=== PATIENT | male | born 1985 | race Caucasian/White ===

== ENCOUNTER 2022-08-28 12:01 | Emergency (ER) | payer OTHER, SELFPAY ==
[2022-08-28 12:07] VITALS: BP 130/85; PULSE 85; RESP 18; TEMP 36.8; O2SAT 97
[2022-08-28 12:10] VITALS: PULSE 69; RESP 16; O2SAT 97
--- NOTE | 2022-08-28 12:42 | ED_ITS ---
HPI - URI/Sore Throat General: Chief Complaint: Upper Respiratory Infection Stated Complaint: Congestion, N/V, body aches Time Seen by Provider: 08/28/22 12:40 History of Present Illness: Mr. Cabral is a 37-year-old gentleman without significant past medical history presenting to the emergency department for respiratory symptoms. Onset of symptoms approximately 1 week ago initially with body aches and congestion however is now developed productive cough and continued symptoms including fever. Intensity symptoms is moderate to severe. Course has worsened. No other specific changes in health, exacerbating, or alleviating factors identified. He did see PCP and was prescribed a course of steroids, these have not provided significant improvement, no history of underlying lung disease or tobaccoism. Onset (ago): week(s) Consistency: progressively worsening Severity: moderate Description of mucous: green Able to tolerate fluids by mouth: Yes Exacerbating factors: exertion Relieving factors: nothing Context: sick contacts Associated symptoms: Reports chills, congestion, cough, ear or mastoid pain, myalgias and short of breath Review of Systems General: Reports: 10 or more systems reviewed and unremarkable except in HPI and below Const: Reports: chills ENMT: Reports: ear or mastoid pain PFS ED PFSH: Medical History (Updated 09/05/22 @ 00:01 by SHAE Hoover) No significant past medical history Surgical History (Updated 08/28/22 @ 13:21 by Tobi Huertas MD) No significant past surgical history Physical Exam Const: COMMON NORMALS: alert GENERAL APPEARANCE: cooperative and well developed HENMT: COMMON NORMALS: normocephalic, atraumatic and TM's normal bilaterally HEAD & SCALP: normocephalic and atraumatic TYMPANIC MEMBRANE: TM's normal bilaterally Eye: COMMON NORMALS: conjunctivae normal CONJUNCTIVA: Yes conjunctivae normal SCLERA: sclerae normal Neck/C-Spine: COMMON NORMALS: supple GENERAL: Yes trachea midline Resp: COMMON NORMALS: clear to auscultation bilaterally EFFORT & INSPECTION: Yes able to speak in complete sentences AUSCULTATION: clear to auscultation bilaterally Cardio: COMMON NORMALS: regular rate and regular rhythm RATE: regular rate RHYTHM: regular rhythm Extremity: GENERAL: Yes normal exam except as noted and No edema Neuro: COMMON NORMALS: moves all extremities SENSORIUM/ORIENTATION: Yes alert and No Orientation impaired Psych: COMMON NORMALS: mental status grossly normal and Normal thought process present THOUGHT PROCESS: Normal thought process present Course Vital Signs: Vital signs: Vital Signs Temperature 98.2 F 08/28/22 12:07 Pulse Rate 69 08/28/22 12:10 Respiratory Rate 16 08/28/22 12:10 Blood Pressure 130/85 08/28/22 12:07 Pulse Oximetry 97 08/28/22 12:10 Oxygen Delivery Me thod Room Air 08/28/22 12:07 MDM - URI/Sore Throat Medical Decision Making 37-year-old gentleman presenting with respiratory symptoms. Patient is mildly ill in appearance however nontoxic. Exam as above. Rapid COVID testing is positive, influenza negative. Chest x-ray with no lobar consolidation or pneumothorax. Patient does have a course of symptoms that noted initial improvement followed by worsening, he will be treated with antibiotics for possible secondary bacterial infection/bronchitis. The results of ED evaluation were discussed with the patient including prescriptions and/or symptomatic cares (if applicable) including appropriate and responsible use, followup plan, and return precautions. The patient verbalized understanding and felt safe for discharge. Medical Records I reviewed the patient's medical records. Lab Data I reviewed the patient's lab results. Radiology Impressions Chest X-Ray 08/28/22 12:50 IMPRESSION: No sign of pneumonia. Laboratory Results Influenza Type A Ag negative (Negative) 08/28/22 13:10 Influenza Type B Ag negative (Negative) 08/28/22 13:10 SARS-CoV-2 Ag (Rapid) positive (Negative) 08/28/22 13:10 Discharge Plan Discharge Patient Disposition: Home Clinical Impression: COVID-19, Bronchitis Condition: Stable Prescriptions: New azithromycin 250 mg tablet See Rx Instructions .ROUTE .COMPLEX Qty: 6 0RF Rx Instructions: For 250 mg dose pack: take 500 mg today (day 1), then 250 mg for 4 days (days 2-5) Discharge Orders: Discharge ED (Routine); Ordered 08/28/22 Ordered By: Tobi Huertas Discharge Diet: Usual diet Discharge Activity: Increase activity as tolerated Patient Instructions: Acute Bronchitis (ED), COVID-19 (Coronavirus Disease 2019) (ED) Activity Restrictions/Additional Instructions: Thank you for visiting the emergency department. You were seen and evaluated for generalized illness with respiratory symptoms. The most likely cause of your symptoms is viral in nature. Given changes in sputum there may be sup erimposed bronchitis which will be treated with antibiotics. You may use [id number] medications such as acetaminophen and ibuprofen for pain however please do not exceed the daily recommended dosage as listed on the packaging and please keep in mind that many namebrand medications contain the same active ingredients. Please avoid these medications if previously instructed to do so by another physician due to other underlying medical condition. Please ensure that you are staying hydrated. Return to the emergency department for uncontrolled symptoms or anything else that you are concerned about and feel needs emergency department evaluation. Coding Level of Care Code ED Manager Entry for Farhan Monreal
--- NOTE | 2022-08-28 12:50 | XRR_ITS ---
PROCEDURE INFORMATION: Exam: XR Chest Exam date and time: 08/28/2022 1:07 PM Age: 37 years old Clinical indication: Cough and fever TECHNIQUE: Imaging protocol: Radiologic exam of the chest. Views: 1 view. COMPARISON: No relevant prior studies available. FINDINGS: Lungs: No focal peripheral lung consolidation, air bronchogram formation, or silhouette sign. Pleural spaces: No pleural effusion or pneumothorax. Heart/Mediastinum: The cardiac silhouette is not enlarged. The mediastinal contours are normal. Bones/joints: No acute osseous abnormality. XR/XR chest 1V portable [id number] IMPRESSION: No sign of pneumonia.
[2022-08-28 13:51] LABS: SARS Covid-2 Antigen positive (Negative)
[2022-08-28 13:53] LABS: Influenza A by IFA negative (Negative); Influenza B by IFA negative (Negative)
--- NOTE | 2022-09-03 10:33 | DCPLANNER ---
working manager called patient due to no primary care physician - no answer at this time.
== END 2022-08-28 14:53 | disposition home or self-care (01) ==
PROVIDERS: Emergency Provider Emergency Medicine
DX: U07.1 COVID-19 (principal); J40 Bronchitis, not specified as acute or chronic
CPT/HCPCS: 71045; 87426; 87804; 99284

== ENCOUNTER 2022-12-15 06:00 | Outpatient (RCR) | payer OTHER, SELFPAY | END 2023-01-06 23:59 | disposition home or self-care (01) | LOC: TPT 06:00 | PROVIDERS: Visit Provider Family Medicine | DX: G60.9 Hereditary and idiopathic neuropathy, unspecified (principal) | CPT/HCPCS: 97110; 97162 ==

== ENCOUNTER 2023-01-07 06:00 | Outpatient (RCR) | payer OTHER, SELFPAY | END 2023-02-05 23:59 | disposition home or self-care (01) | LOC: TPT 06:00 | PROVIDERS: Visit Provider Family Medicine | DX: G60.9 Hereditary and idiopathic neuropathy, unspecified (principal) | CPT/HCPCS: 97110 ==

== ENCOUNTER 2023-02-06 06:00 | Outpatient (RCR) | payer OTHER, SELFPAY | END 2023-02-11 23:59 | disposition home or self-care (01) | LOC: TPT 06:00 | PROVIDERS: Visit Provider Family Medicine | DX: G60.9 Hereditary and idiopathic neuropathy, unspecified (principal) | CPT/HCPCS: 97110 ==

== ENCOUNTER → 2024-03-02 07:57 | Outpatient (BNVA) | payer OTHER, SELFPAY | PROVIDERS: PCP Family Medicine; Referring Provider Family Medicine; Visit Provider Specialist | DX: G56.23 Lesion of ulnar nerve, bilateral upper limbs | CPT/HCPCS: 95911 ==